=== PATIENT | female | born 1985 | race Caucasian/White ===

== ENCOUNTER → 2022-04-11 08:17 | Outpatient (CLI) | payer BC, SELFPAY ==
--- NOTE | ~2022-04-11 | MM_ITS ---
MM diagnostic gwen RT w [place] DATE: 04/11/2022 09:56 INDICATION: Posterior mammographic asymmetry reported on screening CC view of 03/17/2022 screening mamm ogram from [facility] TECHNIQUE: Digital ML and spot ML, MLO and CC Tomosynthesis views of right breast. Computer aided jose guadalupe gnosis. COMPARISON: 03/17/2022 [facility] bilateral screening mammogram FINDINGS: No suspicious mass, architectural distortion, malignant calcification, skin thickening or r etraction. IMPRESSION: BI-RADS Category 1: Negative EXAMINATION: Routine mammographic screening Reviewed, dictated and finalized at [facility]. Reviewed, dictated and finalized at [facility].
== END ==
PROVIDERS: Visit Provider Nurse Practitioner Women's Health
DX: R92.8 Other abnormal and inconclusive findings on diagnostic imaging of breast (principal)
CPT/HCPCS: 77061; 77065; G0279

== ENCOUNTER 2025-01-01 14:44 | Outpatient (CLI) | payer OTHER, SELFPAY ==
--- NOTE | ~2025-01-01 | MR_ITS ---
MRI of the cervical spine Clinical History: Radiculopathy Technique: Axial T2-weighted and gradient images, and sagittal T1-weighted, T2-weighted, and STIR zully ges were acquired. Findings: There is minimal reversal normal cervical lordosis. No fracture or subluxation evident. No suspicious bone marrow signal abnormality seen. There is degenerative change at the reticulation of t he odontoid process with the anterior arch of C1. At C2-C3, there is mild facet arthropathy. No disc bulge or herniation. No spinal canal stenosis, cor d compression, or neural foraminal narrowing. At C3-C4, there is no disc bulge or herniation. No spinal canal stenosis, cord compression, or neural foraminal narrowing. At C4-C5, there is minimal disc bulge. No spinal canal stenosis, cord compression, or neural foramina l narrowing. At C5-C6, there is mild disc bulge. No spinal canal stenosis, cord compression, or definite neural fo raminal narrowing. At C6-C7, there is no disc bulge or herniation. No spinal canal stenosis, cord compression, or neural foraminal narrowing. No abnormal signal seen in the spinal cord. Paravertebral soft tissues are unremarkable. Impression: Minimal degenerative spondylosis, as above. Reviewed, dictated and finalized at location . Impression: Minimal degenerative spondylosis, as above.
== END 2025-01-01 14:45 | disposition home or self-care (01) ==
PROVIDERS: Visit Provider Nurse Practitioner Family
DX: M47.812 Spondylosis without myelopathy or radiculopathy, cervical region (principal)
CPT/HCPCS: 72141